=== PATIENT | female | born 2000 | race Caucasian/White ===

== ENCOUNTER 2021-08-12 08:50 | Emergency (ER) | payer SELFPAY ==
[~2021-08-12] VITALS: Ht 157.5 cm; Wt 63.5 kg
[2021-08-12 08:52] VITALS: BP 99/60
--- NOTE | 2021-08-12 08:55 | NUR ---
PATIENT AMBULATED TO BED 5.
[2021-08-12] MEDS: diphenhydrAMINE 50 MG CAP PO ONE (09:20)
[2021-08-12] MEDS ORDERED: BEN50 PO (09:32)
[2021-08-12] MEDS ORDERED: PRED20TA5 PO (09:32)
[2021-08-12 09:42] VITALS: BP 103/72
--- NOTE | 2021-08-12 09:42 | NUR ---
Patient discharged with v/s stable. Written and verbal after care instructions given FOR RASH and explained. Patient alert, oriented and verbalized understanding of instructions. Ambulatory with steady gait. All questions addressed prior to discharge. ID band removed. Patient advised to follow up with PMD. Rx of BENADRYL AND PREDNISONE given. Patient educated on indication of medication including possible reaction and side effects. Opportunity to ask questions provided and answered.
== END 2021-08-12 09:42 | disposition home or self-care (01) ==
LOC: MED 08:50
DX: R21 Rash and other nonspecific skin eruption (principal); F12.90 Cannabis use, unspecified, uncomplicated
CPT/HCPCS: 99283; Q0163